=== PATIENT | female | born 1995 | race Caucasian/White ===

== ENCOUNTER → 2016-09-16 | Outpatient (CLI) | payer MEDICAID, SELFPAY ==
--- NOTE | 2016-09-16 11:57 | REP ---
Clinical: Anatomical evaluation. Comparison: None . Findings: Examination demonstrates a single live intrauterine in breech presentation. motion is identified by technologist. Placenta is noted posteriorly and grade zero without evidence for placenta previa or abruption. Amniotic fluid volume is normal. Cervix measures 5.4 cm in length and appears closed. No evidence for nuchal cord. Gestational age by LMP 20 weeks 0 days with MARELY 02/03/2017 . Gestational age by current measurements 21 weeks 2 days with MARELY 01/25/2017 . FHR equals 136 beats per minute. BPD 4.8 cm 20 weeks 3 days HC 18.6 cm 20 weeks 6 days AC 16.5 cm 21 weeks 4 days FL 3.8 cm 22 weeks 0 days HL 3.3 cm 21 weeks 2 days HC/AC ratio 1.13 Estimated weight 436 grams ( 59th percentile). Anatomical assessment demonstrates normal structures including cranium, cavum, cerebellum/posterior fossa, facial features, lungs, diaphragm, stomach, cord insertion/three-vessel cord, kidneys/bladder, spine, and extremities. Limited evaluation of the cord plexus and heart/ventricular outflow tracts noted. Impression: Single live intrauterine in breech presentation demonstrating appropriate interval growth. Anatomical limitations as described above may warrant reevaluation and follow-up. Signed by Zay Rubi MD 09/16/2016 11:49 A
== END ==
LOC: M RAD 10:12
PROVIDERS: ATTEND Midwife
DX: O32.1XX0 Maternal care for breech presentation, not applicable or unspecified (principal); Z36 Encounter for antenatal screening of mother; Z3A.21 21 weeks gestation of pregnancy